=== PATIENT | female | born 1945 | race Caucasian/White ===

== ENCOUNTER 2017-02-03 09:54 | Day surgery (SDC) | payer MEDICARE, OTHER ==
[~2017-02-03] VITALS: Ht 165.1 cm; Wt 71.0 kg
[~2017-02-03 09:54] MED LIST: 0.9% Sodium Chloride 1,000 ML IV SCH; ALBU8.5H2 INHALATION; ASPI-973 PO; ATEN50TA PO; ATOR20TA65 PO; ESCI10TA3 PO; HYDR25TA4 PO; MULT-666 PO; NAPR220C11 PO; Sodium Chloride LOK Flush 10 mL Syringe IV PRN; fentaNYL-PF 50 mCg/mL 2 mL Inj IVPUSH PRN
[2017-02-03 10:24] VITALS: BP 121/66; PULSE 70; RESP 16; O2SAT 98
--- NOTE | 2017-02-03 11:41 | PCM.ENDCOL ---
Colonoscopy Date of Service: Feb 03, 2017 Physician Gui Bird MD Pre Procedure Diagnosis: Screening Post Procedure Dx & Findings: Polyp hemorrhoids diverticuliti Procedure Colonoscopy PROCEDURE IN DETAIL: Prep adequate Withdrawal time 16 minutes After unremarkable rectal examination the Olympus video colonoscope was inserted patient's anal canal and was advanced to cecum. Landmarks were identified including the ileocecal valve and appendiceal orifice. Scope was withdrawn systematically. Visualized colonic mucosa showed healthy shiny mucosa with normal healthy-appearing vasculature. In the cecum, there was a 1 cm polyp which was removed completely using hot snare. In the descending colon there was 1 mm polyp which was removed completely using cold forceps. In the rectum colon there was a 2 mm polyp which was removed completely using cold snare. In the sigmoid colon there are several small to medium diverticuli. In the rectum retroflexion was done which showed hemorrhoids. Anal canal was inspected carefully on the way out and hemorrhoids noted. Impression Polyps 3 status post complete removal. Polyp in the cecum was 1 cm. Diverticuli Hemorrhoids Recommendation Repeat colonoscopy 3 years Diverticular diet Presedation Assessment Risks and Benefits Informed consent was obtained from the patient after all risks and benefits including but not limited to drug reaction, infection, pain, bleeding, perforation, as well as alternatives were discussed. Patient monitoring Continuous pulse oximetry, cardiac monitoring, blood pressure monitoring, IV access, and oxygen at 2L per nasal cannula. Periprocedural Fentanyl: Fentanyl 100mcg Incrementally Midazolam: Midazolam 4mg Incrementally Complications There were no periprocedural complications identified. Post Procedure Plan Post Procedure Recommendations 1. Restrict activities today. 2. Resume normal activities in the morning. 3. Resume medications. 4. Patient informed of normal post procedure side effects as bloating, drowsiness, blood streaking in the stool. 5. average risk CRCS. If colon polyps come back as: -Hyperplastic- can repeat colonoscopy in 10 years -Tubular adenoma- repeat colonoscopy in 5 years -Tubulovillous/villous adenoma- repeat colonoscopy in 3 years -If any dysplasia- return to clinic as soon as possible 6. Please don't hesitate to call me with any questions. Gui Bird MD Feb 03, 2017 11:41
[2017-02-03 11:45] VITALS: BP 109/61; PULSE 66; RESP 12; O2SAT 98
[2017-02-03 11:55] VITALS: BP 102/56; PULSE 63; RESP 12; O2SAT 98
[2017-02-03 12:03] VITALS: BP 119/76; PULSE 73; RESP 12; O2SAT 97
--- NOTE | 2017-02-06 10:35 | PATH ---
SURGICAL PATHOLOGY Attending Physician:Gui Bird M.D. CASE STATUS: Signed Out PATIENT NAME: DENNY BAL PID: [id number] : 1945 DATE COLLECTED:02/03/2017 20:16 SPECIMEN: 1: Colon, Biopsy 2: Colon, Biopsy 3: Rectum, Biopsy CLINICAL HISTORY: 1). CECAL POLYP 2). DESCENDING COLON POLYP 3). RECTAL POLYP FINAL DIAGNOSIS: 1.CECAL POLYP: SESSILE SERRATED ADENOMA. 2.DESCENDING COLON POLYP: TUBULAR ADENOMA. 3.RECTAL POLYP: HYPERPLASTIC POLYP. ICD10 CODE D12.6 GROSS DESCRIPTION: The specimen is received in three formalin filled containers labeled with the patient's name. 1). The specimen is sublabeled "cecal polyp" and consists of 4 portions of tissue which aggregate to 0.7 x 0.5 x 0.4 CM. The specimen is entirely submitted in cassette 1A. 2). The specimen is sublabeled "descending colon polyp" and consists of a 0.3 x 0.3 x 0.3 CM portion of tissue which is entirely submitted in cassette 2A. 3). The specimen is sublabeled "rectal polyp" and consists of a 0.3 x 0.3 x 0.3 CM portion of tissue which is entirely submitted in cassettes 3A. 02/03/2017 DAC MICRO DESCRIPTION: See diagnosis. ICD-9 CODES: CPT CODES: 1: 43744 2: 86096 3: 17570 Electronically Signed Out Regan Nicholas MD [facility], [place] [address] Technical component performed at [facility], [facility] [address], [place], [address]
== END 2017-02-03 23:59 | disposition home or self-care (01) ==
LOC: END 09:54
PROVIDERS: ATTEND Internal Medicine
DX: Z12.11 Encounter for screening for malignant neoplasm of colon (principal); D12.0 Benign neoplasm of cecum; D12.4 Benign neoplasm of descending colon; D12.8 Benign neoplasm of rectum; K64.9 Unspecified hemorrhoids; K57.30 Diverticulosis of large intestine without perforation or abscess without bleeding; I10 Essential (primary) hypertension; E78.5 Hyperlipidemia, unspecified; G47.33 Obstructive sleep apnea (adult) (pediatric); G43.909 Migraine, unspecified, not intractable, without status migrainosus; F17.210 Nicotine dependence, cigarettes, uncomplicated; Z90.710 Acquired absence of both cervix and uterus
CPT/HCPCS: 45380; 45385; 88305; 99153; G0500; J2250; J3010; J7030